=== PATIENT | male | born 1985 | race African-American/Black ===

== ENCOUNTER 2020-12-18 12:11 | Emergency (ER) | payer MEDICAID ==
[~2020-12-18] VITALS: Ht 182.9 cm; Wt 104.0 kg
[2020-12-18 12:35] VITALS: BP 125/83
[2020-12-18] MEDS ORDERED: CEFTRIAXONE SODIUM 500 MG/VIAL IM ONE (13:00)
[2020-12-18] MEDS ORDERED: AZITHROMYCIN 500 MG TABLET PO ONE (13:00)
== END 2020-12-18 13:34 | disposition home or self-care (01) ==
LOC: ER 12:11
DX: A56.01 Chlamydial cystitis and urethritis (principal); R03.0 Elevated blood-pressure reading, without diagnosis of hypertension
CPT/HCPCS: 87591; 96372; 99283; J0696